=== PATIENT | male | born 1950 | race Caucasian/White ===

== ENCOUNTER 2018-05-17 12:46 | Observation (INO) | payer MEDICARE, OTHER ==
[2018-05-17] MEDS ORDERED: KETOROLAC TROMETHAMINE INJ/PF 30 MG/1 ML SDV IV ONE (13:41)
--- NOTE | 2018-05-17 13:41 | ER Document Report ---
ED Medical Screen (RME) - General Chief Complaint: Chest Pain Stated Complaint: LEFT SHOULDER/ARM PAIN, CHEST PAIN Time Seen by Provider: 05/17/18 13:39 Notes: 68-year-old male to the emergency department chief complaint of left chest pain. Hurts to take a deep breath. Hurts to move. Patient drove here from [place] a few days ago. Was having some flulike symptoms before that. Has progressed to left-sided chest pain that radiates up the left side of his neck and down the left arm. Father and brother has had blood clots in the past. Denies any calf pain. Denies any prior history of blood clots. Has hypertension. I have greeted and performed a rapid initial assessment of this patient. A comprehensive ED assessment and evaluation of the patient, analysis of test results and completion of the medical decision making process will be conducted by additional ED providers. - Related Data Allergies/Adverse Reactions: No Known Allergies Allergy (Unverified 05/17/18 12:47) Review of Systems - Review of Systems Notes: Review of systems positive for the following: Pleuritic chest pain, Physical Exam - Vital signs Vitals: Temp Pulse Resp BP Pulse Ox 99.1 F 79 20 142/81 H 97 05/17/18 13:18 05/17/18 13:18 05/17/18 13:18 05/17/18 13:18 05/17/18 13:18 Course - Vital Signs Vital signs: Temp Pulse Resp BP Pulse Ox 99.1 F 79 20 142/81 H 97 05/17/18 13:18 05/17/18 13:18 05/17/18 13:18 05/17/18 13:18 05/17/18 13:18
[2018-05-17 15:24] LABS: ABSOLUTE EOSINOPHILS # (AUTO) 0.1 10^3/uL (0.0-0.6); ABSOLUTE LYMPHOCYTES (AUTO) 1.3 10^3/uL (0.5-4.7); ABSOLUTE MONOCYTES (AUTO) 0.5 10^3/uL (0.1-1.4); ABSOLUTE NEUT (AUTO) 5.5 10^3/uL (1.7-8.2); BASOPHILS % (AUTO) 0.4 % (0-2); EOSINOPHILS % (AUTO) 0.9 % (0-6); HEMATOCRIT 43.9 % (37.9-51.0); HEMOGLOBIN 15.6 g/dL (13.5-17.0); LYMPHOCYTES % (AUTO) 17.4 % (13-45); MEAN CORPUSCULAR HEMOGLOBIN 32.3 pg (27.0-33.4); MEAN CORPUSCULAR HGB CONC 35.6 g/dL (32.0-36.0); MEAN CORPUSCULAR VOLUME 91 fl (80-97); MONOCYTES % (AUTO) 6.5 % (3-13); PLATELET COUNT 223 10^3/uL (150-450); RED BLOOD COUNT 4.85 10^6/uL (4.35-5.55); RED CELL DISTRIBUTION WIDTH 13.1 % (11.5-14.0); SEGMENTED NEUTROPHILS % (AUTO) 74.8 % (42-78); TOTAL CELLS COUNTED % (AUTO) 100 %; WHITE BLOOD COUNT 7.4 10^3/uL (4.0-10.5)
--- NOTE | 2018-05-17 15:27 | RADIOLOGY REPORT (SQ) ---
EXAM DESCRIPTION: CHEST 2 VIEWS COMPLETED DATE/TIME: 05/17/2018 3:08 pm REASON FOR STUDY: chest pain COMPARISON: None. EXAM PARAMETERS: NUMBER OF VIEWS: two views TECHNIQUE: Digital Frontal and Lateral radiographic views of the chest acquired. RADIATION DOSE: NA LIMITATIONS: none FINDINGS: LUNGS AND PLEURA: Subsegmental focal airspace opacity in the left upper lobe. No effusion s. MEDIASTINUM AND HILAR STRUCTURES: No masses or contour abnormalities. HEART AND VASCULAR STRUCTURES: Heart normal size. No evidence for failure. BONES: No acute findings. HARDWARE: None in the chest. OTHER: No other significant finding. IMPRESSION: Early pneumonia versus nodule left upper lobe. Clinical correlation is needed. TECHNICAL DOCUMENTATION: JOB ID: [id number] [employer]- All Rights Reserved Reading location - IP/workstation name: [email or web address]
[2018-05-17 15:41] LABS: ALANINE AMINOTRANSFERASE 38 U/L (21-72); ALBUMIN 4.6 g/dL (3.5-5.0); ALKALINE PHOSPHATASE 91 U/L (38-126); ANION GAP 13 (5-19); ASPARTATE AMINO TRANSFERASE 39 U/L (17-59); BILIRUBIN,DIRECT 0.3 mg/dL (0.0-0.4); BLOOD UREA NITROGEN 13 mg/dL (7-20); CALCIUM 9.2 mg/dL (8.4-10.2); CARBON DIOXIDE 27 mmol/L (22-30); CHLORIDE 101 mmol/L (98-107); CREATINE KINASE 168 U/L (55-170); GLUCOSE 100 mg/dL (75-110); POTASSIUM 4.2 mmol/L (3.6-5.0); SODIUM 140.9 mmol/L (137-145); TOTAL PROTEIN 7.9 g/dL (6.3-8.2)
[2018-05-17 15:52] LABS: CREATINE KINASE MB 2.37 ng/mL (<4.55); TROPONIN I < 0.012 ng/mL
--- NOTE | 2018-05-17 16:42 | ER Document Report ---
ED General - General Chief Complaint: Chest Pain Stated Complaint: LEFT SHOULDER/ARM PAIN, CHEST PAIN Time Seen by Provider: 05/17/18 13:39 - HPI Notes: Patient is a 68-year-old male with no significant past medical history who pr esents to the emergency department complaining of left upper lateral chest pain that began over the last couple days and has been relatively constant since then. Patient states that the pain does not radiate and is worse when he is moving the left upper extremity. Deep inspiration and pushing in that area makes the pain worse. Patient states that he did have upper respiratory symptoms this past week, but they have improved overall. He was evaluated by his family doctor 4 days ago and was told that he may have a virus. 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 They drove early Thursday morning for 10 hours to come to [place]. He is otherwise eating and drinking without difficulty. He is urinating normally and having normal bowel movements. He does not have sob or CUNHA. Denies any recent surgery/trauma, personal cancer history, hormone use, smoking, or previous DVT/PE. Denies any headache, fever, neck pain, URI, sore throat, palpitations, syncope, cough, shortness of breath, wheeze, dyspnea, abdominal pain, nausea/vomiting/diarrhea, urinary retention, dysuria, hematuria, loss of control of bowel or bladder, numbness/tingling, saddle anesthesia, muscle paralysis/weakness, or rash. - Related Data Allergies/Adverse Reactions: No Known Allergies Allergy (Verified 05/17/18 16:37) Past Medical History - Social History Smoking Status: Never Smoker Frequency of alcohol use: once a day Drug Abuse: None Family History: Reviewed & Not Pertinent Patient has suicidal ideation: No Patient has homicidal ideation: No Renal/ Medical History: Denies: Hx Peritoneal Dialysis Past Surgical History: Reports: Hx Abdominal Surgery - hiatal hernia repair, Hx Orthopedic Surgery - ganglion cyst removed Review of Systems - Review of Systems -: Yes All other systems reviewed and negative Physical Exam - Vital signs Vitals: Temp Pulse Resp BP Pulse Ox 99.1 F 79 20 142/81 H 97 05/17/18 13:18 05/17/18 13:18 05/17/18 13:18 05/17/18 13:18 05/17/18 13:18 - Notes Notes: PHYSICAL EXAMINATION: GENERAL: Well-appearing, well-nourished and in no acute distress. HEAD: Atraumatic, normocephalic. EYES: Pupils equal round and reactive to light, extraocular movements intact, sclera anicteric, conjunctiva are normal. ENT: Nares patent and without discharge. oropharynx clear without exudates. No tonsilar hypertrophy or erythema. Moist mucous membranes. NECK: Normal range of motion, supple without lymphadenopathy Chest: + mild tenderness left pectoral muscle. LUNGS: Breath sounds clear to auscultation bilaterally and equal. No wheezes rales or rhonchi. HEART: Regular rate and rhythm without murmurs, rubs, gallops. ABDOMEN: Soft, nontender, nondistended abdomen. No guarding, no rebound. No masses appreciated. Normal bowel sounds present. No CVA tenderness bilaterally. Musculoskeletal: FROM to passive/active. Strength 5+/5. Zbigniew neg. No asymmetry to LE's. Extremities: No cyanosis, clubbing, or edema b/l. Peripheral pulses 2+. Capillary refill less than 3 seconds. NEUROLOGICAL: Normal speech, normal gait. PSYCH: Normal mood, normal affect. SKIN: Warm, Dry, normal turgor, no rashes or lesions noted. Course - Re-evaluation Re-evalutation: 05/17/18 17:27 Pt stated originally no medical history, but after talking with him more at his re-eval, pt states that he does have prostate cancer that is too small to do anything with at this time. No other medical history. Spoke with Radiology, Dr. Mott, who revealed that the patient has PE's b/l L>R. Vitals are acceptable without significant tachycardia, tachypnea, hypoxia, hypotension. CBC, CMP, cardiac enzymes are unremarkable. EKG does not show any ischemic change. No evidence of heart strain at this time. We did add-on a BNP and coags. I did speak with Dr. Howell, hospitalist, who accepted on behalf of Dr. Dash. Reviewed case with patient who is in agreement with admit/plan. Lovenox ordered. Pt is otherwise hemodynamically stable at this time. No new concerns or complaints. - Vital Signs Vital signs: Temp Pulse Resp BP Pulse Ox 99.1 F 79 18 156/85 H 97 05/17/18 13:18 05/17/18 13:18 05/17/18 17:01 05/17/18 17:00 05/17/18 17:01 - Laboratory Result Diagrams: 05/17/18 15:00 05/17/18 15:00 Laboratory results interpreted by me: 05/17/18 15:00 D-Dimer 1.80 H Critical Care Note - Critical Care Note Total time excluding time spent on procedures (mins): 36 Discharge - Discharge Clinical Impression: Pulmonary embolism Qualifiers: Pulmonary embolism type: other Chronicity: acute Acute cor pulmonale presence: without acute cor pulmonale Qualified Code(s): I26.99 - Other pulmonary embolism without acute cor pulmonale Condition: Stable Disposition: ADMITTED INPATIENT Admitting Provider: Hospitalist - Dr. Dash Unit Admitted: DWIGHT
--- NOTE | 2018-05-17 17:23 | RADIOLOGY REPORT (SQ) ---
EXAM DESCRIPTION: CTA CHEST COMPLETED DATE/TIME: 05/17/2018 4:57 pm REASON FOR STUDY: chest pain, elevated, abnormal cxr COMPARISON: Chest films 05/17/2018 TECHNIQUE: CT scan of the chest performed using helical scanning technique with dynamic intravenous contrast injection. Images reviewed with lung, soft tissue and bone windows. Reconstructed coronal and sagittal MPR images reviewed. Additional 3 dimensional post-processing performed to develop Maximal Intensity Projection images (MN P). All images stored on PACS. All CT scanners at this facility use dose modulation, iterative reconstruction, and/or weight based d osing when appropriate to reduce radiation dose to as low as reasonably achievable (ALARA). [facility]: Dose Right [facility]: CareDose [facility]: Dose Right [facility]: Teradose 4D [facility]: Charlie App CONTRAST TYPE AND DOSE: contrast/concentration: Isovue 350.00 mg/ml; Total Contrast Delivered: 82.0 ml; Total Saline Delivered: 110.0 ml Contrast bolus optimized for the pulmonary arteries and aorta. RENAL FUNCTION: Creatinine 0.93 RADIATION DOSE: CT Rad equipment meets quality standard of care and radiation dose reduction techniq ues were employed. CTDIvol: 18.1 - 39.7 mGy. DLP: 727 mGy-cm. . LIMITATIONS: None. FINDINGS: LUNGS AND PLEURA: Small peripheral pulmonary infarcts are present in the left lung, along the left upper lobe and left posterior costophrenic sulcus. This accounts for the findings on chest x-ray earlier today. No acute right-sided infiltrates. No right or left pleural effusion or pneumothorax. AORTA AND GREAT VESSELS: No aneurysm or dissection. HEART: No pericardial effusion. No significant coronary artery calcifications. PULMONARY ARTERIES: Moderate size left distal main pulmonary artery embolus on axial image 56. Embol i extend into the left upper lobe segmental pulmonary arteries and left lower lobe segmental pulmonar y arteries. On the right side, a small filling defect in the lateral segment right middle lobe pulmonary artery i s seen. HILAR AND MEDIASTINAL STRUCTURES: No identified masses or abnormal nodes. HARDWARE: None in the chest. UPPER ABDOMEN: No significant findings. Limited exam. THYROID AND OTHER SOFT TISSUES: No masses. No adenopathy. BONES: No acute or significant finding. 3D MIPS: Confirm above findings. OTHER: No other significant finding. IMPRESSION: Acute pulmonary emboli with small left upper lobe and left posterior lower lobe pulmonar y infarcts. COMMENT: Pertinent findings on the imaging study reported as a CRITICAL RESULT to EUFEMIA MAHER at17:10 on 05/17/2018. Category of Critical Result: Acute pulmonary emboli Quality ID # [id number]: Final reports with documentation of one or more dose reduction techniques (e.g., Au tomated exposure control, adjustment of the mA and/or kV according to patient size, use of iterative reconstruction technique) TECHNICAL DOCUMENTATION: JOB ID: [id number] [employer]- All Rights Reserved Reading location - IP/workstation name: [email or web address]
[2018-05-17] MEDS ORDERED: ENOXAPARIN SODIUM INJ 100 MG/1 ML DISP.SYRIN SUBCUT SCH (17:30)
[2018-05-17 17:31] LABS: INTERNATIONAL RATION (INR) 0.94
[2018-05-17 17:32] LABS: PARTIAL THROMBOPLASTIN TIME 32.1 SEC (23.5-35.8)
[2018-05-17] MEDS: ENOXAPARIN SODIUM INJ 100 MG/1 ML DISP.SYRIN SUBCUT SCH (17:38)
--- NOTE | 2018-05-17 18:22 | EKG REPORT ---
SEVERITY:- NORMAL ECG - SINUS RHYTHM : Confirmed by: Joanne Buck 17-May-2018 18:21:51
[2018-05-17] MEDS ORDERED: IPRATROPIUM/ALBUTEROL 0.5-2.5 MG/3 ML AMPUL NEB PRN (18:44)
[2018-05-17] MEDS ORDERED: ONDANSETRON HCL INJ/PF 4 MG/2 ML SDV IV PRN (18:44)
--- NOTE | 2018-05-17 19:02 | PDOC H&P ---
History of Present Illness Admission Date/PCP: 05/17/18 17:33 Out of town Patient complains of: Shortness of breath History of Present Illness: JONATHON PEDERSON is a 68 year old male with past medical history of Kenzie's and currently on Synthroid, who presented to the hospital complaining of shortness of breath. Patient states that last he started to have some shortness of breath and flulike symptoms. States he went to his PCP and everything was fi ne as he was sent home. But then on Thursday he has shortness of breath worsened but he still drove from [place] down to [place]. On Thursday he shortness of breath was improved a little bit but then at night it worsened again. On Thursday his shortness of breath was worsened a lot and he was unable to take a deep breath. States that every time he took a deep breath it hurt. States that he ended up going to the urgent care today because he was not able to tolerate the shortness of breath and he was told to come to the ER. He drove to the ER after that. In the ED he was found to have a PE on CTA chest. And hospitalist were consulted for admission. Past Medical History Endocrine Medical History: Reports: Hypothyroidism Past Surgical History Past Surgical History: Reports: Orthopedic Surgery - ganglion cyst removed Social History Information Source: Patient Smoking Status: Never Smoker - Advance Directive Resuscitation Status: Full Code Family History Family History: Reviewed & Not Pertinent, Other - Father had a history of cancer and blood clots. Brother had a history of pulmonary embolism. Uncle had a history of massive TX and known to have factor V Leyden deficiency. Parental Family History Reviewed: Yes Children Family History Reviewed: Unknown Sibling(s) Family History Reviewed.: Yes Medication/Allergy Home Medications: Levothyroxine Sodium [Unithroid] 1 tab PO DAILY 05/17/18 Allergies/Adverse Reactions: No Known Allergies Allergy (Verified 05/17/18 16:37) Review of Systems All systems: reviewed and no additional remarkable complaints except as stated Constitutional: ABSENT: chills, fever(s) Eyes: ABSENT: visual disturbances Ears: ABSENT: hearing changes Nose, Mouth, and Throat: ABSENT: headache(s) Cardiovascular: PRESENT: other - Pleuritic chest pain. ABSENT: edema Respiratory: PRESENT: cough, dyspnea, other Gastrointestinal: ABSENT: abdominal pain, nausea, vomiting Genitourinary: ABSENT: dysuria Musculoskeletal: ABSENT: joint swelling Neurological: ABSENT: abnormal speech, focal weakness, memory loss, syncope, weakness Endocrine: ABSENT: polyphagia Physical Exam Vital Signs: Temp Pulse Resp BP Pulse Ox 99.1 F 79 14 173/99 H 97 05/17/18 13:18 05/17/18 13:18 05/17/18 18:31 05/17/18 18:30 05/17/18 18:31 Intake & Output 05/16/18 05/17/18 05/18/18 06:59 06:59 06:59 Weight 209 lb 7.026 oz General appearance: PRESENT: no acute distress Head exam: PRESENT: atraumatic, normocephalic Eye exam: PRESENT: EOMI. ABSENT: conjunctival injection, scleral icterus Ear exam: PRESENT: normal external ear exam Mouth exam: PRESENT: moist, tongue midline Neck exam: ABSENT: tracheal deviation Respiratory exam: PRESENT: clear to auscultation sandeep, symmetrical, other - Some conversational dyspnea Cardiovascular exam: PRESENT: +S1, +S2 Pulses: PRESENT: +2 pedal pulses bilateral GI/Abdominal exam: PRESENT: normal bowel sounds, soft. ABSENT: tenderness Extremities exam: ABSENT: pedal edema Neurological exam: PRESENT: alert, awake, oriented to person, oriented to place, oriented to time, oriented to situation, CN II-XII grossly intact Skin exam: PRESENT: dry, warm Results Laboratory Results: 05/17/18 15:00 05/17/18 15:00 05/17/18 05/17/18 15:00 15:00 WBC 7.4 RBC 4.85 Hgb 15.6 Hct 43.9 MCV 91 MCH 32.3 MCHC 35.6 RDW 13.1 Plt Count 223 Seg Neutrophils % 74.8 Lymphocytes % 17.4 Monocytes % 6.5 Eosinophils % 0.9 Basophils % 0.4 Absolute Neutrophils 5.5 Absolute Lymphocytes 1.3 Absolute Monocytes 0.5 Absolute Eosinophils 0.1 Absolute Basophils 0.0 Sodium 140.9 Potassium 4.2 Chloride 101 Carbon Dioxide 27 Anion Gap 13 BUN 13 Creatinine 0.93 Est GFR ( Amer) > 60 Est GFR (Non-Af Amer) > 60 Glucose 100 Calcium 9.2 Total Bilirubin 1.0 AST 39 ALT 38 Alkaline Phosphatase 91 Total Protein 7.9 Albumin 4.6 05/17/18 05/17/18 05/17/18 15:00 15:00 15:00 Creatine Kinase 168 CK-MB (CK-2) 2.37 Troponin I < 0.012 NT-Pro-B Natriuret Pep 76 05/17/18 17:50 Creatine Kinase CK-MB (CK-2) Troponin I < 0.012 NT-Pro-B Natriuret Pep Impressions: Chest X-Ray 05/17/18 13:41 IMPRESSION: Early pneumonia versus nodule left upper lobe. Clinical correlation is needed. Chest/Abdomen CTA 05/17/18 15:39 IMPRESSION: Acute pulmonary emboli with small left upper lobe and left posterior lower lobe pulmonary infarcts. Assessment & Plan - Diagnosis (1) Hypothyroidism Is this a current diagnosis for this admission?: Yes (3) Pulmonary embolism Qualifiers: Pulmonary embolism type: other Chronicity: acute Acute cor pulmonale presence: without acute cor pulmonale Qualified Code(s): I26.99 - Other pulmonary embolism without acute cor pulmonale Is this a current diagnosis for this admission?: Yes - Time Time Spent: Greater than 70 Minutes - Inpatient Certification Medical Necessity: Need Close Monitoring Due to Risk of Patient Decompensation, Need For Continuous Telemetry Monitoring, Risk of Complication if Not Cared For in Hospital - Plan Summary Plan Summary: Pulmonary esbtabni-myqh-zrdyk-seen on CTA of the chest. We will start him on Lovenox 1 mg/kg twice a day. He seems to be saturating well. We will get an echo in the morning to rule out right heart strain. EKG did not show any changes. We will repeat EKG in the morning. We will repeat blood work. His father had a history of cancer and blood clots. His brother had a history of p ulmonary embolism and his uncle has a history of massive TX thought to be from factor V Leiden deficiency. We will need to talk to discharge planning about choice of p.o. anticoagulation such as Eliquis or Xarelto. Hypothyroidism-continue with Synthroid. Hyperlipidemia-he is not on any meds.
[2018-05-17] MEDS: FAMOTIDINE 20 MG TABLET PO SCH (21:36)
[2018-05-17 22:33] LABS: APPEARANCE,URINE CLEAR; BILIRUBIN,URINE NEGATIVE (NEGATIVE); COLOR,URINE YELLOW; GLUCOSE, URINE NEGATIVE (NEGATIVE); KETONES,URINE 20 mg/dL (NEGATIVE); LEUKOCYTE ESTERASE,URINE NEGATIVE (NEGATIVE); NITRITE,URINE NEGATIVE (NEGATIVE); PROTEIN,URINE NEGATIVE (NEGATIVE)
[2018-05-17 22:39] LABS: URINE SPECIFIC GRAVITY > 1.060
[2018-05-18] MEDS: ACETAMINOPHEN 325 MG TABLET PO PRN ×2 (03:29→16:02)
[2018-05-18] MEDS: ENOXAPARIN SODIUM INJ 100 MG/1 ML DISP.SYRIN SUBCUT SCH ×2 (05:06→18:09)
[2018-05-18] MEDS: LEVOTHYROXINE SODIUM 0.025 MG TABLET PO SCH (05:06)
[2018-05-18] MEDS: LEVOTHYROXINE SODIUM 0.1 MG TABLET PO SCH (05:06)
[2018-05-18 06:34] LABS: ABSOLUTE EOSINOPHILS # (AUTO) 0.1 10^3/uL (0.0-0.6); ABSOLUTE LYMPHOCYTES (AUTO) 1.3 10^3/uL (0.5-4.7); ABSOLUTE MONOCYTES (AUTO) 0.6 10^3/uL (0.1-1.4); ABSOLUTE NEUT (AUTO) 3.4 10^3/uL (1.7-8.2); BASOPHILS % (AUTO) 0.6 % (0-2); EOSINOPHILS % (AUTO) 2.6 % (0-6); HEMOGLOBIN 14.8 g/dL (13.5-17.0); LYMPHOCYTES % (AUTO) 24.4 % (13-45); MEAN CORPUSCULAR HEMOGLOBIN 32.3 pg (27.0-33.4); MEAN CORPUSCULAR HGB CONC 36.1 g/dL (32.0-36.0); MEAN CORPUSCULAR VOLUME 90 fl (80-97); MONOCYTES % (AUTO) 10.5 % (3-13); PLATELET COUNT 210 10^3/uL (150-450); RED BLOOD COUNT 4.58 10^6/uL (4.35-5.55); RED CELL DISTRIBUTION WIDTH 12.6 % (11.5-14.0); SEGMENTED NEUTROPHILS % (AUTO) 61.9 % (42-78); TOTAL CELLS COUNTED % (AUTO) 100 %; WHITE BLOOD COUNT 5.5 10^3/uL (4.0-10.5)
[2018-05-18 07:13] LABS: ANION GAP 10 (5-19); BLOOD UREA NITROGEN 15 mg/dL (7-20); CALCIUM 8.8 mg/dL (8.4-10.2); CARBON DIOXIDE 27 mmol/L (22-30); CHLORIDE 102 mmol/L (98-107); CHOLESTEROL 183.38 mg/dL (0-200); GLUCOSE 109 mg/dL (75-110); POTASSIUM 4.3 mmol/L (3.6-5.0); SODIUM 138.7 mmol/L (137-145); TRIGLYCERIDES 101 mg/dL (<150)
[2018-05-18 07:23] LABS: FREE T4 (FREE THYROXINE) 1.12 ng/dL (0.78-2.19)
[2018-05-18 07:24] LABS: DIRECT LDL 126 mg/dL (<100)
[2018-05-18 07:37] LABS: THYROID STIMULATING HORMONE 1.66 uIU/mL (0.47-4.68)
[2018-05-18] MEDS ORDERED: LEVOTHYROXINE SODIUM PO SCH (10:00)
[2018-05-18] MEDS: FAMOTIDINE 20 MG TABLET PO SCH ×2 (10:34→21:03)
[2018-05-18] MEDS: OXYCODONE-ACETAMINOPHEN 5-325 MG TABLET PO PRN (16:03)
--- NOTE | 2018-05-18 20:57 | XCELERA REPORT ---
[address] [address] Transthoracic Echocardiogram Report Name: JONATHON PEDERSON Age: 68 yrs Gender: Male : 1950 Patient Status: Inpatient Patient Location: [address] [place], [place] [address] Study Date: 05/18/2018 10:50 AM Height: 72 in Weight: 209 lb BSA: 2.2 m2 Procedure: A two-dimensional transthoracic echocardiogram with color flow and Doppler was performed. The study was technically difficult with many images being suboptimal in quality. Reason For Study: Pulmonary embolism-rule out right heart strain History: Pulmonary embolism-rule out right heart strain( PE / RV Failure). Ordering Physician: RAS SERNA Performed By: Nadira Wetzel Interpretation Summary The left ventricle is normal in size. There is normal left ventricular wall thickness. The left ventricular ejection fraction is within normal limits. LV EF is > than 60% Doppler measurements suggest normal left ventricular diastolic function The left ventricular wall motion is normal. There is no thrombus. There is no ventricular septal defect visualized. The right ventricle is not well visualized secondary to technical limitations But in 1 subcostal view probably normal RV size and EF. The right atrium is normal. The left atrial size is normal. The interatrial septum is intact with no evidence for an atrial septal defect. There is no Doppler evidence for an interatrial shunt There is no evidence of mitral valve prolapse. There is no vegetation seen on the mitral valve. There is no mitral valve stenosis. There is a mild amount of mitral regurgitation There is no aortic valve stenosis There is no LVOT obstruction. No aortic regurgitation is present. There is no tricuspid stenosis. There is a trace to mild amount of tricuspid regurgitation No significant pulmonary hypertension.RVSP is 27 to 32 mm of Hg , with RA mean of 0 to 5. There is no pulmonic valvular stenosis. Not well seen, but cannot exclude trace TX. The aortic root is normal size. The inferior vena cava appeared small and collapsed with respiration (RAP 0-5 mmHg) There is no pericardial effusion. MMode/2D Measurements & Calculations RVDd: 3.8 cm LVIDd: 5.0 cm FS: 33.7 % Ao root diam: 3.0 cm IVSd: 0.86 cm LVIDs: 3.3 cm EDV(Teich): 116.0 ml Ao root area: 7.3 cm2 LVPWd: 1.0 cm ESV(Teich): 43.8 ml EF(Teich): 62.2 % Doppler Measurements & Calculations MV E max doreen: MV dec slope: Ao V2 max: LV V1 max P.3 cm/sec 397.4 cm/sec2 109.4 cm/sec 3.7 mmHg MV A max doreen: MV dec time: 0.18 sec Ao max PG: LV V1 max: 69.0 cm/sec 4.8 mmHg 96.1 cm/sec MV E/A: 1.0 LV dP/dt: 8479 mmHg/s PA V2 max: TR max doreen: 124.1 cm/sec 259.8 cm/sec PA max P.2 mmHg TR max P.1 mmHg Left Ventricle The left ventricle is normal in size. There is normal left ventricular wall thickness. The left ventricular ejection fraction is within normal limits. LV EF is > than 60%. Doppler measurements suggest normal left ventricular diastolic function. The left ventricular wall motion is normal. There is no thrombus. There is no ventricular septal defect visualized. Right Ventricle The right ventricle is not well visualized secondary to technical limitations. But in 1 subcostal view probably normal RV size and EF. Atria The right atrium is normal. The left atrial size is normal. The interatrial septum is intact with no evidence for an atrial septal defect. There is no Doppler evidence for an interatrial shunt. Mitral Valve There is no evidence of mitral valve prolapse. There is no vegetation seen on the mitral valve. There is no mitral valve stenosis. There is a mild amount of mitral regurgitation. Aortic Valve There is no aortic valvular vegetation. There is no aortic valve stenosis. There is no LVOT obstruction. No aortic regurgitation is present. Tricuspid Valve There is no tricuspid stenosis. There is a trace to mild amount of tricuspid regurgitation. No significant pulmonary hypertension.RVSP is 27 to 32 mm of Hg , with RA mean of 0 to 5. Pulmonic Valve There is no pulmonic valvular stenosis. Not well seen, but cannot exclude trace TX. Great Vessels The aortic root is normal size. The inferior vena cava appeared small and collapsed with respiration (RAP 0-5 mmHg). Effusions There is no pericardial effusion. : RAS SERNA > Sherry Velazquez
--- NOTE | 2018-05-18 21:44 | EKG REPORT ---
SEVERITY:- NORMAL ECG - SINUS RHYTHM : Confirmed by: Joanne Buck 18-May-2018 21:44:30
--- NOTE | 2018-05-18 21:46 | PDOC PROGRESS REPORT ---
Subjective Progress Note for:: 05/18/18 Subjective:: Patient still with pleuritic pain on the left Reason For Visit: PULMONARY EMBOLISM Physical Exam Vital Signs: Temp Pulse Resp BP Pulse Ox 97.4 F 64 20 123/73 96 05/18/18 20:34 05/18/18 20:34 05/18/18 20:34 05/18/18 20:34 05/18/18 20:34 Intake & Output 05/17/18 05/18/18 05/19/18 06:59 06:59 06:59 Intake Total 240 Balance 240 Weight 90.4 kg General appearance: PRESENT: mild distress, well-developed Eye exam: PRESENT: conjunctiva pink. ABSENT: scleral icterus Ear exam: PRESENT: normal external ear exam Respiratory exam: PRESENT: clear to auscultation sandeep, symmetrical, unlabored. ABSENT: accessory muscle use, rales, rhonchi, wheezes Cardiovascular exam: PRESENT: RRR, +S1, +S2 GI/Abdominal exam: PRESENT: normal bowel sounds, soft. ABSENT: distended, tenderness Rectal exam: PRESENT: deferred Extremities exam: ABSENT: calf tenderness, pedal edema Musculoskeletal exam: PRESENT: ambulatory Neurological exam: PRESENT: alert, awake, oriented to person, oriented to place, oriented to time, oriented to situation, CN II-XII grossly intact Psychiatric exam: PRESENT: appropriate affect, normal mood. ABSENT: agitated, anxious Focused psych exam: ABSENT: restlessness Results Laboratory Results: 05/18/18 06:10 05/18/18 06:10 05/17/18 05/18/18 05/18/18 21:39 06:10 06:10 WBC 5.5 RBC 4.58 Hgb 14.8 Hct 41.0 MCV 90 MCH 32.3 MCHC 36.1 H RDW 12.6 Plt Count 210 Seg Neutrophils % 61.9 Lymphocytes % 24.4 Monocytes % 10.5 Eosinophils % 2.6 Basophils % 0.6 Absolute Neutrophils 3.4 Absolute Lymphocytes 1.3 Absolute Monocytes 0.6 Absolute Eosinophils 0.1 Absolute Basophils 0.0 Sodium 138.7 Potassium 4.3 Chloride 102 Carbon Dioxide 27 Anion Gap 10 BUN 15 Creatinine 1.00 Est GFR ( Amer) > 60 Est GFR (Non-Af Amer) > 60 Glucose 109 Calcium 8.8 Magnesium 2.3 Triglycerides 101 Cholesterol 183.38 LDL Cholesterol Direct 126 H VLDL Cholesterol 20.0 HDL Cholesterol 34 L TSH Free T4 Urine Color YELLOW Urine Appearance CLEAR Urine pH 5.0 Ur Specific [place] > 1.060 Urine Protein NEGATIVE Urine Glucose (UA) NEGATIVE Urine Ketones 20 H Urine Blood SMALL H Urine Nitrite NEGATIVE Ur Leukocyte Esterase NEGATIVE Urine WBC (Auto) 1 Urine RBC (Auto) 3 05/18/18 06:10 WBC RBC Hgb Hct MCV MCH MCHC RDW Plt Count Seg Neutrophils % Lymphocytes % Monocytes % Eosinophils % Basophils % Absolute Neutrophils Absolute Lymphocytes Absolute Monocytes Absolute Eosinophils Absolute Basophils Sodium Potassium Chloride Carbon Dioxide Anion Gap BUN Creatinine Est GFR ( Amer) Est GFR (Non-Af Amer) Glucose Calcium Magnesium Triglycerides Cholesterol LDL Cholesterol Direct VLDL Cholesterol HDL Cholesterol TSH 1.66 Free T4 1.12 Urine Color Urine Appearance Urine pH Ur Specific [place] Urine Protein Urine Glucose (UA) Urine Ketones Urine Blood Urine Nitrite Ur Leukocyte Esterase Urine WBC (Auto) Urine RBC (Auto) 05/17/18 05/17/18 05/17/18 15:00 15:00 15:00 Creatine Kinase 168 CK-MB (CK-2) 2.37 Troponin I < 0.012 NT-Pro-B Natriuret Pep 76 05/17/18 17:50 Creatine Kinase CK-MB (CK-2) Troponin I < 0.012 NT-Pro-B Natriuret Pep Impressions: Chest X-Ray 05/17/18 13:41 IMPRESSION: Early pneumonia versus nodule left upper lobe. Clinical correlation is needed. Chest/Abdomen CTA 05/17/18 15:39 IMPRESSION: Acute pulmonary emboli with small left upper lobe and left posterior lower lobe pulmonary infarcts. Assessment & Plan - Diagnosis (1) Pulmonary embolism Qualifiers: Pulmonary embolism type: other Chronicity: acute Acute cor pulmonale presence: without acute cor pulmonale Qualified Code(s): I26.99 - Other pulmonary embolism without acute cor pulmonale Is this a current diagnosis for this admission?: Yes Plan: Appears to be the larger embolism on the left. There is likely a small embolus on the right as well. From the left main thrombus there are peripheral thrombi noted as well. Echocardiogram did not reveal pulmonary hypertension. The patient will be placed on apixaban in preparation for discharge with outpatient therapy. He did have a [address] in his car prior to arriving in [place]. He states that he was having chest discomfort and shortness of breath several days prior to his road trip. He in fact went to his primary care physician as well. He also reports that he has prostate cancer but it is a very small nodule. It is being followed by urology. Lastly there is a positive family history for factor V Leiden mutation. We discussed continuing the workup when he is home in [place]. Continue anticoagulation until such time as his primary care physician or laborer concrete paving direct him to do otherwise. (2) Pleuritic chest pain Is this a current diagnosis for this admission?: Yes Plan: From multiple emboli. I reassured the patient that over time this will improve. (3) Hypothyroidism Qualifiers: Hypothyroidism type: unspecified Qualified Code(s): E03.9 - Hypothyroidism, unspecified Is this a current diagnosis for this admission?: Yes Plan: Resume levothyroxine 125 mcg daily. - Time Time Spent with patient: 25-34 minutes Medications reviewed and adjusted accordingly: Yes Anticipated discharge: Home
[2018-05-18] MEDS: APIXABAN 5 MG TABLET PO SCH (21:57)
[2018-05-19] MEDS: OXYCODONE-ACETAMINOPHEN 5-325 MG TABLET PO PRN (03:38)
[2018-05-19] MEDS: ACETAMINOPHEN 325 MG TABLET PO PRN (03:39)
[2018-05-19] MEDS: LEVOTHYROXINE SODIUM 0.1 MG TABLET PO SCH (05:12)
[2018-05-19] MEDS: LEVOTHYROXINE SODIUM 0.025 MG TABLET PO SCH (05:12)
[2018-05-19 06:40] LABS: HEMATOCRIT 38.9 % (37.9-51.0); HEMOGLOBIN 14.1 g/dL (13.5-17.0); MEAN CORPUSCULAR HEMOGLOBIN 32.3 pg (27.0-33.4); MEAN CORPUSCULAR HGB CONC 36.2 g/dL (32.0-36.0); MEAN CORPUSCULAR VOLUME 89 fl (80-97); PLATELET COUNT 206 10^3/uL (150-450); RED BLOOD COUNT 4.37 10^6/uL (4.35-5.55); RED CELL DISTRIBUTION WIDTH 12.7 % (11.5-14.0); WHITE BLOOD COUNT 5.5 10^3/uL (4.0-10.5)
[2018-05-19] MEDS: APIXABAN 5 MG TABLET PO SCH (09:34)
[2018-05-19] MEDS: FAMOTIDINE 20 MG TABLET PO SCH (09:34)
[2018-05-19 11:15] LABS: APPEARANCE,URINE CLEAR; BILIRUBIN,URINE NEGATIVE (NEGATIVE); COLOR,URINE YELLOW; GLUCOSE, URINE NEGATIVE (NEGATIVE); KETONES,URINE NEGATIVE (NEGATIVE); LEUKOCYTE ESTERASE,URINE NEGATIVE (NEGATIVE); NITRITE,URINE NEGATIVE (NEGATIVE); PROTEIN,URINE NEGATIVE (NEGATIVE); URINE SPECIFIC GRAVITY 1.004; UROBILINOGEN,URINE NEGATIVE mg/dL (<2.0)
[2018-05-19 13:03] VITALS: BP 142/82
--- NOTE | 2018-05-19 20:53 | PDOC DISCHARGE SUMMARY ---
General - Admit/Disc Date/PCP Admission Date/Primary Care Provider: 05/17/18 17:33 Discharge Date: 05/19/18 - Discharge Diagnosis (1) Pulmonary embolism Is this a current diagnosis for this admission?: Yes Summary: The patient had symptoms of his pulmonary emboli (likely multiple evidenced on CT scan) prior to his drive to [place] from [place]. He did report that he has a brother with factor V Leiden mutation. He will be going back to [place] on Thursday. I told him to get a copy of his medical records as well as imaging studies and bring them with him back to [place]. I highly recommended that he see a sewer and inspector especially considering his family history. I did explain that the hematology workup will determine the length of treatment time for his anticoagulation. Review of the CT angiogram shows a small embolus on the right as well as a moderate main embolus on the left with several areas distal suggesting multiple emboli. (2) Pleuritic chest pain Is this a current diagnosis for this admission?: Yes Summary: I feel this is related to the pulmonary emboli and should resolve over time. (3) Hypothyroidism Is this a current diagnosis for this admission?: Yes Summary: Continue levothyroxine 125 mcg daily. - Additional Information Resuscitation Status: Full Code Discharge Diet: Regular Discharge Activity: Activity As Tolerated, Balance Activity w/Rest Prescriptions: Apixaban [Eliquis 5 mg Tablet] 5 mg PO BID 30 Days #60 tablet Home Medications: Levothyroxine Sodium [Unithroid] 1 tab PO DAILY 05/17/18 Apixaban [Eliquis 5 mg Tablet] 5 mg PO BID 30 Days #60 tablet 05/19/18 History of Present Illness Patient complains of: Chest pain with difficulty breathing History of Present Illness: JONATHON PEDERSON is a 68 year old male who recently drove to [place] from [place]. Prior to the actual drive he was having some left shoulder discomfort. He noted that he was getting more short of breath and experience significant fatigue with decreasing activity. The left shoulder pain was increasing. He consulted with his nephew who is a water system operator in the and he strongly suggested visiting the emergency room. CT angiogram revealed a small embolus on the right with a moderate primary embolus on the left and several areas of emboli distally. He was referred to the hospitalist service for admission. Hospital Course Hospital Course: Patient had a relatively uncomplicated hospital course. He was started on Lovenox and then transitioned to apixaban. He tolerated the medication without any difficulties. He will be discharged home. I strongly suggested that he bring an entire copy of his medical records including imaging back to [place]. I stressed the necessity of seeing a sewer and inspector. He may very well have the factor V Leiden mutation that is known to be present in his family. He does have a history of prostate cancer and certainly this could be thrombogenic but it is not classically the typical malignancy to cause hypercoagulability. He was discharged with his apixaban. He will continue his levothyroxine. I explained that the pleuritic discomfort will ease over time. Physical Exam Vital Signs: Temp Pulse Resp BP Pulse Ox 97.4 F 64 20 142/82 H 98 05/19/18 14:31 05/19/18 14:31 05/19/18 14:31 05/19/18 12:23 05/19/18 14:31 Intake & Output 05/18/18 05/19/18 05/20/18 06:59 06:59 06:59 Intake Total 240 1287 Balance 240 1287 Weight 90.4 kg 93.2 kg General appearance: PRESENT: no acute distress, well-developed Head exam: PRESENT: normocephalic Eye exam: PRESENT: conjunctiva pink. ABSENT: scleral icterus Respiratory exam: PRESENT: clear to auscultation sandeep, symmetrical, unlabored. ABSENT: rales, rhonchi, wheezes Cardiovascular exam: PRESENT: RRR, +S1, +S2, systolic murmur - 2/6 GI/Abdominal exam: PRESENT: normal bowel sounds, soft. ABSENT: distended, tenderness Rectal exam: PRESENT: deferred Extremities exam: ABSENT: calf tenderness, pedal edema Musculoskeletal exam: PRESENT: ambulatory Neurological exam: PRESENT: alert, awake, oriented to person, oriented to place, oriented to time, oriented to situation, CN II-XII grossly intact Psychiatric exam: PRESENT: appropriate affect, normal mood. ABSENT: agitated, anxious Focused psych exam: ABSENT: restlessness Results Laboratory Results: 05/19/18 06:18 05/18/18 06:10 05/19/18 05/19/18 06:18 11:00 WBC 5.5 RBC 4.37 Hgb 14.1 Hct 38.9 MCV 89 MCH 32.3 MCHC 36.2 H RDW 12.7 Plt Count 206 Urine Color YELLOW Urine Appearance CLEAR Urine pH 6.0 Ur Specific [place] 1.004 Urine Protein NEGATIVE Urine Glucose (UA) NEGATIVE Urine Ketones NEGATIVE Urine Blood SMALL H Urine Nitrite NEGATIVE Ur Leukocyte Esterase NEGATIVE Urine WBC (Auto) 0 Urine RBC (Auto) 0 05/17/18 05/17/18 05/17/18 15:00 15:00 15:00 Creatine Kinase 168 CK-MB (CK-2) 2.37 Troponin I < 0.012 NT-Pro-B Natriuret Pep 76 05/17/18 17:50 Creatine Kinase CK-MB (CK-2) Troponin I < 0.012 NT-Pro-B Natriuret Pep Impressions: Chest X-Ray 05/17/18 13:41 IMPRESSION: Early pneumonia versus nodule left upper lobe. Clinical correlation is needed. Chest/Abdomen CTA 05/17/18 15:39 IMPRESSION: Acute pulmonary emboli with small left upper lobe and left posterior lower lobe pulmonary infarcts. Qualifiers - * PATIENT BEING DISCHARGED WITH ANY OF THE FOLLOWING DIAGNOSIS: VTE (PE or DVT) VTE patient discharged on overlapping Therapy?: No Reason(s) for not prescribing Overlap Therapy:: Not indicated - Transition from Lovenox to apixaban does not require overlap. Plan Discharge Plan: Discharge to home. He will remain in [place] for approximately 6 more days watching his grandchildren. He will then return to [place]. He will schedule follow-up appointments with his primary care physician as well as hematology. Time Spent: Greater than 30 Minutes
[2018-05-21 12:44] LABS: FACTOR V ACTIVITY 121 % (70-150)
== END 2018-05-19 15:12 | disposition home or self-care (01) ==
LOC: ER 12:46 → EH 17:33 → INTOOBSV 17:33 → 3S 19:19
PROVIDERS: ADMIT Internal Medicine; ATTEND Internal Medicine
DX: I26.99 Other pulmonary embolism without acute cor pulmonale (principal); Z83.2 Family history of diseases of the blood and blood-forming organs and certain disorders involving the immune mechanism; R07.81 Pleurodynia; E03.9 Hypothyroidism, unspecified; E78.5 Hyperlipidemia, unspecified; C61 Malignant neoplasm of prostate; Z79.899 Other long term (current) drug therapy; Z79.02 Long term (current) use of antithrombotics/antiplatelets; Z82.49 Family history of ischemic heart disease and other diseases of the circulatory system; Z80.9 Family history of malignant neoplasm, unspecified
CPT/HCPCS: 93005 ×2; 99291; 96374; 36415 ×3; 84439; 82553; 82550; 83735; 84443; 85025 ×2; 85027; 85610; 85730; 80048; 80053; 81001 ×2; 84484; 85220; 81241; 85379; 80061; 83880; 93306; 71046; 71275; 93010 ×2; G0378 ×2; A9270 ×13; J1885; J1650 ×2